=== PATIENT | male | born 1985 | race Hispanic/Latino ===

== ENCOUNTER 2020-02-26 10:34 | Inpatient (IN) | payer OTHER ==
[~2020-02-26 10:34] MED LIST: Iopamidol-370 76% 500 ML 1 ML ONE
[2020-02-26] MEDS ORDERED: Fentanyl 100 MCG/2 ML VIAL ONE ×4 (10:39→21:09)
[2020-02-26] MEDS ORDERED: Adacel (T-DAP) 0.5 ML SYRINGE ONE (10:39)
[2020-02-26] MEDS ORDERED: HYDROmorphone 0.5 MG/0.5 ML SYRINGE ONE ×5 (10:43→12:41)
[2020-02-26 10:50] LABS: Hemoglobin 15.5 g/dL (14.0-18.0); Mean Corpuscular HGB CONC 31.4 g/dL (32.0-36.0); Mean Corpuscular Hemoglobin 29.4 pg (27.0-31.0); Mean Corpuscular Volume 93.7 fL (78.0-98.0); Mean Platelet Volume 7.8 fL (7.4-10.4); Platelet Count 372 thou/uL (130-400); RBC Distribution Width 11.1 % (11.5-14.5); Red Blood Cell (RBC) Count 5.27 mill/uL (4.70-6.10); White Blood Cell (WBC) Count 35.6 thou/uL (4.8-10.8)
[2020-02-26 11:15] LABS: ALT (SGPT) 205 U/L (8-55); AST (SGOT) 202 U/L (5-34); Albumin 3.7 g/dL (3.5-5.0); Alkaline Phosphatase 88 U/L (40-110); Anion Gap 16 mmol/L (10-20); BUN (Urea Nitrogen) 10 mg/dL (8.9-20.6); Bilirubin, Total 0.7 mg/dL (0.2-1.2); Calc. Creatinine Clearance 0 mL/min (70-130); Calcium 8.7 mg/dL (7.8-10.44); Carbon Dioxide 20 mmol/L (22-29); Chloride 107 mmol/L (98-107); Estimated GFR-MDRD 85; Globulin 3.4 g/dL (2.4-3.5); Glucose 147 mg/dL (70-105); Protein, Total 7.1 g/dL (6.0-8.3); Sodium 139 mmol/L (136-145)
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
[2020-02-26 11:17] LABS: Band 13 % (5-11); Lymphocytes 16 % (21-51); MDiff Complete? YES; Metamyelocyte 1 % (0-0); Monocytes 4 % (0-10); Neutrophil 65 % (42-75); Platelet Morphology Comment Appears Adequate; RBC Morphology Normal; Reactive Lymphocytes 1 % (0-10)
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
[2020-02-26] MEDS ORDERED: Succinylcholine Chloride 20 MG/ML 10 ml SYRINGE FS ONE (11:27)
[2020-02-26] MEDS ORDERED: Glycopyrrolate 0.2 MG/ML 5 ML SYRINGE ONE (11:27)
[2020-02-26] MEDS ORDERED: Dexamethasone 20 MG/5 ML VIAL ONE (11:27)
[2020-02-26] MEDS ORDERED: Ketorolac Tromethamine 30 MG/ML VIAL ONE (11:27)
[2020-02-26] MEDS ORDERED: Rocuronium Bromide 10 MG/ML (10ML VIAL) ONE (11:27)
[2020-02-26] MEDS ORDERED: Lidocaine 1% PF 5 ML VIAL ONE (11:27)
[2020-02-26] MEDS ORDERED: Ondansetron PF 4 MG/2 ML Vial ONE (11:27)
[2020-02-26] MEDS ORDERED: PHENYLEPHRINE-NS 100 MCG/ML 10 ML SYRINGE ONE (11:27)
[2020-02-26] MEDS ORDERED: PROPOFOL 200 MG/20 ML VIAL ONE (11:27)
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
[2020-02-26] MEDS ORDERED: Lidocaine 1% w/Epinephrine 1:100K 20 ML VIAL ONE (11:57)
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
[2020-02-26 12:56] LABS: Alcohol Less than 10 mg/dL (Less than 10); Valproic Acid (Depakene) Less than 12.5 ug/mL (50.0-100.0)
[2020-02-26] MEDS ORDERED: hydrALAZINE 20 MG/ML VIAL SLOW IVP PRN (12:58)
[2020-02-26] MEDS ORDERED: Dextrose 5% in Water 1,000 ML IV PRN (12:58)
[2020-02-26] MEDS ORDERED: Dextrose 50% Abboject 50 ML SYRINGE SLOW IVP PRN (12:58)
[2020-02-26] MEDS ORDERED: Morphine 4 MG/ML VIAL SLOW IVP PRN (12:58)
[2020-02-26] MEDS ORDERED: traMADol HCl 50 MG TAB PO PRN ×2 (13:02)
[2020-02-26] MEDS ORDERED: PROVENTIL INHALER 6.7 G (200 INHALATIONS) INH PRN (13:17)
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
[2020-02-26 13:38] LABS: Amphetamine Not Detected (NotDetected); Barbiturates Screen Not Detected (NotDetected); Benzodiazepine Screen Not Detected (NotDetected); Cocaine Metabolite Screen Not Detected (NotDetected); Medtox Control Line Valid? VALID (VALID); Medtox Reader # READER 1; Methadone Not Detected (NotDetected); Methamphetamine Not Detected (NotDetected); Opiate Screen Detected (NotDetected); Oxycodone Screen Not Detected (NotDetected); Phencyclidine (PCP) Not Detected (NotDetected); THC/Cannabinoid Screen Not Detected (NotDetected); Tricyclic Screen Not Detected (NotDetected)
[2020-02-26 13:46] LABS: Bacteria/HPF None Seen HPF (None Seen); Bilirubin Negative (Negative); Blood, Urine 1+ (Negative); Clarity Clear (Clear); Glucose, Urine (Dipstick) Normal (Negative); Leukocyte Negative Leu/uL (Negative); Nitrite Negative (Negative); Protein, Urine (Dipstick) 30 mg/dL (Neg-Trace); RBC/HPF 0-3 HPF (0-3); Squamous Epithelial 0-3 HPF (0-3); Urobilinogen Normal mg/dL (Less than 2)
[2020-02-26 13:59] LABS: Lactic Acid 3.6 mmol/L (0.5-2.2)
[2020-02-26] MEDS ORDERED: Divalproex Sodium DR 500 MG TAB PO SCH (14:00)
[2020-02-26] MEDS ORDERED: CEFAZOLIN 2 GM in Premix Bag 1 BAG IVPB SCH ×2 (15:15→22:45)
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
[2020-02-26] MEDS ORDERED: Fentanyl 250 MCG/5 ML VIAL ONE (16:00)
[2020-02-26] MEDS ORDERED: Bupivacaine PF 0.5% 30 ML VIAL ONE (16:26)
[2020-02-26] MEDS ORDERED: HYDROmorphone 2 MG/ML VIAL ONE (18:47)
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
[2020-02-26] MEDS ORDERED: Promethazine HCl 25 MG/ML VIAL SLOW IVP PRN (20:39)
[2020-02-26] MEDS ORDERED: Promethazine HCl 25 MG/ML VIAL IM PRN (20:39)
[2020-02-26] MEDS ORDERED: HYDROmorphone 2 MG/ML VIAL SLOW IVP PRN (20:39)
[2020-02-26] MEDS ORDERED: Ondansetron HCl/PF 4 MG/2 ML Vial IVP PRN (20:39)
[2020-02-26] MEDS ORDERED: PACU-Morphine 4MG/ML VIAL SLOW IVP PRN (20:39)
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
--- NOTE | 2020-02-26 20:57 | RAD ---
RIGHT FEMUR SIX TOTAL IMAGES: Indication: ORIF right femur fracture. Comparison: Right femur radiographs, 02-26-2020. FINDINGS: Since the comparison examination there is improved alignment with interval placement of an intramedul ruth leanna involving a comminuted segmental right femoral shaft fracture. There are proximal and distal interlock screws involving the proximal femur and distal right femur. Instrumentation projects in th e expected position. Total fluoroscopic time: 145.2 seconds, total exposure 22.1 mGy*cm^2. IMPRESSION: Interval reduction and placement of intramedullary leanna transversing patient's comminuted right midsha ft femoral fracture. POS: [facility]
[2020-02-26 22:20] VITALS: BMI 37.5
[2020-02-26] MEDS: Acetaminophen 500 MG TAB PO SCH ×2 (22:41→22:42)
[2020-02-26] MEDS: Sodium Chloride 0.9% 1,000 ML IV SCH (22:41)
[2020-02-26] MEDS: Ibuprofen 600 MG TAB PO SCH ×2 (22:42→22:49)
[2020-02-26] MEDS: Senokot S 8.6-50 MG TAB PO SCH (22:42)
[2020-02-26] MEDS: Gabapentin 300 MG CAP PO SCH (22:42)
[2020-02-26] MEDS: Famotidine/PF 20 mg/2ml Vial SLOW IVP SCH (22:42)
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
[2020-02-27] MEDS: Acetaminophen 500 MG TAB PO SCH ×2 (02:24→05:43)
[2020-02-27] MEDS: Ondansetron PF 4 MG/2 ML Vial IVP PRN (02:49)
[2020-02-27] MEDS: Ibuprofen 600 MG TAB PO SCH ×3 (05:43→22:58)
[2020-02-27] MEDS: Cyclobenzaprine 10 MG TAB PO PRN ×2 (05:43→22:58)
[2020-02-27] MEDS: CEFAZOLIN 2 GM in Premix Bag 1 BAG IVPB SCH ×2 (05:44→13:22)
[2020-02-27 06:03] LABS: ALT (SGPT) 110 U/L (8-55); AST (SGOT) 108 U/L (5-34); Alkaline Phosphatase 53 U/L (40-110); Anion Gap 15 mmol/L (10-20); BUN (Urea Nitrogen) 11 mg/dL (8.9-20.6); Bilirubin, Total 0.6 mg/dL (0.2-1.2); Calc. Creatinine Clearance 183 mL/min (70-130); Calcium 7.7 mg/dL (7.8-10.44); Carbon Dioxide 19 mmol/L (22-29); Chloride 106 mmol/L (98-107); Estimated GFR-MDRD 88; Globulin 2.9 g/dL (2.4-3.5); Glucose 194 mg/dL (70-105); Magnesium 1.5 mg/dL (1.6-2.6); Phosphorus 2.5 mg/dL (2.3-4.7); Potassium 4.5 mmol/L (3.5-5.1); Protein, Total 5.9 g/dL (6.0-8.3); Sodium 135 mmol/L (136-145)
[2020-02-27 07:00] LABS: Hemoglobin 11.8 g/dL (14.0-18.0); Mean Corpuscular HGB CONC 32.1 g/dL (32.0-36.0); Mean Corpuscular Hemoglobin 30.6 pg (27.0-31.0); Mean Corpuscular Volume 95.3 fL (78.0-98.0); Platelet Count 281 thou/uL (130-400); RBC Distribution Width 11.3 % (11.5-14.5); Red Blood Cell (RBC) Count 3.87 mill/uL (4.70-6.10); White Blood Cell (WBC) Count 15.7 thou/uL (4.8-10.8)
[2020-02-27 07:03] LABS: Band 21 % (5-11); Lymphocytes 17 % (21-51); MDiff Complete? YES; Monocytes 17 % (0-10); Neutrophil 45 % (42-75)
--- NOTE | 2020-02-27 07:52 | RAD ---
RIGHT ANKLE THREE FLUOROSCOPIC VIEWS: Indication: Post reduction in OR. Comparison: 02-26-2020 FINDINGS: Since the comparison examination there is improved coverage of the talar dome with reduction of the a nkle fracture subluxation seen on the comparison examination. There is improved alignment of the bima lleolar ankle fracture. Overlying fiber glass splint slightly limits image detail. Total fluoroscopic time is 22.8 sec, total exposure 1.8 mGy*cm^2. IMPRESSION: Improved alignment of the fracture subluxation involving the right ankle. POS: [facility]INA
--- NOTE | 2020-02-27 08:48 | CT ---
EXAM: CT right ankle and midfoot PROVIDED CLINICAL HISTORY: Fractures COMPARISON: None FINDINGS: There is transversely oriented, minimally displaced, comminuted Casillas C fibular fracture. There is transversely oriented, minimally displaced fracture at the base of the medial malleolus. There is a markedly comminuted, displaced fracture involving the anterolateral aspect of the tibial p heri. There is about 6 mm of intra-articular gap. Multiple osseous fragments are seen in the region of the distal tibiofibular syndesmosis. There is a nondisplaced fracture involving the lateral process of the talus. There is a comminuted, mildly displaced fracture at the dorsal margin of the medial cuneiform. There is a nondisplaced intra-articular fracture involving the plantar aspects of the medial cuneiform. The avulsion type fracture involves the lateral margin of the middle cuneiform. The alignment at the Lisfranc joint appears preserved in the absence of weightbearing. There is a tiny osseous fragment at the plantar aspect of the C1 M2 interval. No evidence for fracture involving the metatarsal bases. Alignment appears otherwise anatomic. IMPRESSION: Foreleg, hindfoot and midfoot fractures as described.
[2020-02-27] MEDS: Famotidine/PF 20 mg/2ml Vial SLOW IVP SCH ×2 (08:50→20:14)
[2020-02-27] MEDS: Polyethylene Glycol 3350 17 GM Packet PO SCH (08:50)
[2020-02-27] MEDS: Senokot S 8.6-50 MG TAB PO SCH ×2 (08:50→20:14)
[2020-02-27] MEDS: Gabapentin 300 MG CAP PO SCH ×3 (08:50→20:14)
[2020-02-27] MEDS: Sodium Chloride 0.9% 1,000 ML IV SCH ×3 (09:02→22:58)
[2020-02-27] MEDS ORDERED: Acetaminophen/Codeine 30-300mg Tablet PO PRN ×2 (09:31)
[2020-02-27 11:10] LABS: Hemoglobin 11.3 g/dL (14.0-18.0); Mean Corpuscular HGB CONC 33.1 g/dL (32.0-36.0); Mean Corpuscular Hemoglobin 30.9 pg (27.0-31.0); Mean Corpuscular Volume 93.5 fL (78.0-98.0); Mean Platelet Volume 8.1 fL (7.4-10.4); Platelet Count 240 thou/uL (130-400); RBC Distribution Width 11.1 % (11.5-14.5); Red Blood Cell (RBC) Count 3.65 mill/uL (4.70-6.10)
--- NOTE | 2020-02-27 11:31 | RAD ---
LEFT FORELEG 7 VIEWS: INDICATION: ORIF of left foreleg fracture. COMPARISON: Left foreleg radiograph dated 02/26/2020. FINDINGS: Since the comparison examination, there has been interval reduction and placement of an intramedullar y leanna fixating the patient's mid shaft left tibia fracture. Fracture line is near anatomic. There a re proximal and distal interlocking screws. Total fluoroscopic time is 64.4 seconds. Total exposure is 2.07 mGy. IMPRESSION: Interval reduction and placement of an intramedullary leanna traversing patient's left mid shaft tibia f racture. Fracture alignment is improved. POS: BH
[2020-02-27 11:37] LABS: ALT (SGPT) 96 U/L (8-55); AST (SGOT) 112 U/L (5-34); Albumin 3.1 g/dL (3.5-5.0); Alkaline Phosphatase 49 U/L (40-110); Anion Gap 12 mmol/L (10-20); BUN (Urea Nitrogen) 10 mg/dL (8.9-20.6); Bilirubin, Total 0.6 mg/dL (0.2-1.2); Calc. Creatinine Clearance 193 mL/min (70-130); Calcium 7.8 mg/dL (7.8-10.44); Carbon Dioxide 25 mmol/L (22-29); Chloride 104 mmol/L (98-107); Estimated GFR-MDRD Greater than 90; Globulin 2.6 g/dL (2.4-3.5); Glucose 134 mg/dL (70-105); Lipase 6 U/L (8-78); Potassium 3.9 mmol/L (3.5-5.1); Protein, Total 5.7 g/dL (6.0-8.3); Sodium 137 mmol/L (136-145)
[2020-02-27 12:01] LABS: Band 10 % (5-11); Lymphocytes 19 % (21-51); MDiff Complete? YES; Monocytes 15 % (0-10); Neutrophil 56 % (42-75); Platelet Morphology Comment Appears Adequate; RBC Morphology Normal
[2020-02-27] MEDS: Acetaminophen 325 MG TAB PO SCH ×3 (12:50→22:58)
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
--- NOTE | 2020-02-27 15:48 | EEG ---
Referring Physician: Megan BRIDGES EEG # [id number] TEST TYPE: EXTENDED CONTINUOUS INPATIENT VIDEO EEG. REPORT: This EEG was performed using 24 channel LifeShield video digital EEG machine with 24 disc electrodes. This was an extended 2 hour 5 minutes of inpatient video EEG recording. Digital analysis of the EEG was done with spike and seizure detection which revealed no abnormalities. BACKGROUND: There is a nonsustained posterior background rhythm of 7-8 hertz. Minimal reactivity seen with eye opening and eye closure. HYPERVENTILATION: No significant response seen with hyperventilation: PHOTIC STIMULATION: No significant response seen with photic stimulation. SLEEP: Drowsiness and brief sleep is observed. EEG DIAGNOSIS: 1.) Occasional irregular theta activity seen during the recording. 2.) Nonsustained slow posterior background rhythm. CLINICAL INTERPRETATION: THIS EEG IS CONSISTENT WITH MILD GENERALIZED NONSPECIFIC CEREBRAL DYSFUNCTION. NO ICTAL OR INTERICTAL EPILEPTIFORM ABNORMALITIES SEEN DURING THE RECORDING. Sessions Clerk: SIMEON [employer] Music Teacher: EEG.BELTRAN ESTEBAN
[2020-02-27] MEDS: Enoxaparin Sodium 30 MG/0.3 ML SYRINGE SC SCH (20:14)
[2020-02-27] MEDS: Divalproex Sodium DR 500 MG TAB PO SCH (20:15)
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
[2020-02-28 03:28] LABS: #Eosinphils 0.2 thou/uL (0.0-0.7); #Lymphocytes 3.3 thou/uL (1.20-3.40); #Monocytes 1.7 thou/uL (0.11-0.59); #Neutrophils 7.9 thou/uL (1.40-6.50); %Basophils 0.4 % (0.0-1.0); %Eosinophils 1.2 % (0.0-10.0); %Lymphocytes 25.3 % (21.0-51.0); %Monocytes 12.7 % (0.0-10.0); %Neutrophils 60.4 % (42.0-75.0); Hemoglobin 8.9 g/dL (14.0-18.0); Mean Corpuscular HGB CONC 33.8 g/dL (32.0-36.0); Mean Corpuscular Hemoglobin 31.3 pg (27.0-31.0); Mean Corpuscular Volume 92.7 fL (78.0-98.0); Mean Platelet Volume 8.1 fL (7.4-10.4); Platelet Count 172 thou/uL (130-400); Red Blood Cell (RBC) Count 2.85 mill/uL (4.70-6.10)
[2020-02-28 03:46] LABS: ALT (SGPT) 63 U/L (8-55); AST (SGOT) 108 U/L (5-34); Albumin 2.7 g/dL (3.5-5.0); Alkaline Phosphatase 45 U/L (40-110); Anion Gap 11 mmol/L (10-20); BUN (Urea Nitrogen) 11 mg/dL (8.9-20.6); Bilirubin, Total 0.5 mg/dL (0.2-1.2); Calc. Creatinine Clearance 222 mL/min (70-130); Calcium 7.2 mg/dL (7.8-10.44); Carbon Dioxide 27 mmol/L (22-29); Chloride 105 mmol/L (98-107); Estimated GFR-MDRD Greater than 90; Globulin 2.5 g/dL (2.4-3.5); Glucose 109 mg/dL (70-105); Magnesium 1.7 mg/dL (1.6-2.6); Potassium 3.7 mmol/L (3.5-5.1); Protein, Total 5.2 g/dL (6.0-8.3); Sodium 139 mmol/L (136-145)
[2020-02-28] MEDS: Ibuprofen 600 MG TAB PO SCH ×3 (05:38→20:09)
[2020-02-28] MEDS: Acetaminophen 325 MG TAB PO SCH (05:38)
[2020-02-28] MEDS: Sodium Chloride 0.9% 1,000 ML IV SCH ×3 (05:42→20:04)
[2020-02-28] MEDS ORDERED: Acetaminophen/Codeine 30-300mg Tablet PO PRN (07:11)
[2020-02-28] MEDS ORDERED: Potassium Phosphate 15 MMOL in Sodium Chloride 0.9% 250 ML 250 ML IVPB SCH (07:15)
[2020-02-28] MEDS ORDERED: Magnesium Sulfate 3 GM in Sodium Chloride 0.9% 100 ML IVPB SCH (08:30)
[2020-02-28] MEDS: Acetaminophen/Codeine 30-300mg Tablet PO SCH ×3 (08:40→19:19)
[2020-02-28] MEDS: Gabapentin 300 MG CAP PO SCH ×3 (08:40→20:05)
[2020-02-28] MEDS: Famotidine 20 MG TAB PO SCH ×2 (08:40→20:05)
[2020-02-28] MEDS: Divalproex Sodium DR 500 MG TAB PO SCH ×2 (08:40→20:05)
[2020-02-28] MEDS: Senokot S 8.6-50 MG TAB PO SCH ×2 (08:40→20:05)
[2020-02-28] MEDS: Enoxaparin Sodium 30 MG/0.3 ML SYRINGE SC SCH ×2 (08:41→20:06)
[2020-02-28] MEDS: Polyethylene Glycol 3350 17 GM Packet PO SCH (08:41)
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
[2020-02-29] MEDS: Acetaminophen/Codeine 30-300mg Tablet PO SCH ×4 (00:15→18:09)
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
[2020-02-29] MEDS: Ibuprofen 600 MG TAB PO SCH ×3 (06:15→20:41)
[2020-02-29 08:31] LABS: #Eosinphils 0.2 thou/uL (0.0-0.7); #Lymphocytes 2.4 thou/uL (1.20-3.40); #Neutrophils 8.4 thou/uL (1.40-6.50); %Basophils 0.2 % (0.0-1.0); %Eosinophils 1.9 % (0.0-10.0); %Lymphocytes 19.8 % (21.0-51.0); %Monocytes 8.6 % (0.0-10.0); %Neutrophils 69.5 % (42.0-75.0); Hemoglobin 8.5 g/dL (14.0-18.0); Mean Corpuscular HGB CONC 34.1 g/dL (32.0-36.0); Mean Corpuscular Hemoglobin 31.7 pg (27.0-31.0); Platelet Count 199 thou/uL (130-400); Red Blood Cell (RBC) Count 2.69 mill/uL (4.70-6.10); White Blood Cell (WBC) Count 12.1 thou/uL (4.8-10.8)
[2020-02-29] MEDS ORDERED: Potassium Phosphate 30 MMOL, Magnesium Sulfate 3 GM in Sodium Chloride 0.9% 250 ML 250 ML IVPB SCH (08:45)
[2020-02-29 08:54] LABS: Anion Gap 12 mmol/L (10-20); BUN (Urea Nitrogen) 11 mg/dL (8.9-20.6); Calc. Creatinine Clearance 254 mL/min (70-130); Calcium 7.4 mg/dL (7.8-10.44); Carbon Dioxide 26 mmol/L (22-29); Chloride 106 mmol/L (98-107); Estimated GFR-MDRD Greater than 90; Glucose 97 mg/dL (70-105); Phosphorus 2.9 mg/dL (2.3-4.7); Potassium 4.1 mmol/L (3.5-5.1); Sodium 140 mmol/L (136-145)
[2020-02-29] MEDS: Gabapentin 300 MG CAP PO SCH ×3 (10:03→20:41)
[2020-02-29] MEDS: Cyclobenzaprine 10 MG TAB PO PRN ×2 (10:03→20:41)
[2020-02-29] MEDS: Divalproex Sodium DR 500 MG TAB PO SCH ×2 (10:03→21:02)
[2020-02-29] MEDS: Enoxaparin Sodium 30 MG/0.3 ML SYRINGE SC SCH ×2 (10:04→20:41)
[2020-02-29] MEDS: Famotidine 20 MG TAB PO SCH ×2 (10:04→20:41)
[2020-02-29] MEDS: Senokot S 8.6-50 MG TAB PO SCH ×2 (10:05→20:41)
[2020-02-29] MEDS: Polyethylene Glycol 3350 17 GM Packet PO SCH (10:06)
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
[2020-03-01] MEDS: Acetaminophen/Codeine 30-300mg Tablet PO SCH ×4 (00:35→18:27)
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
[2020-03-01] MEDS: Ibuprofen 600 MG TAB PO SCH ×3 (05:03→21:19)
[2020-03-01 05:34] LABS: Phosphorus 3.4 mg/dL (2.3-4.7)
[2020-03-01 05:35] LABS: Anion Gap 11 mmol/L (10-20); BUN (Urea Nitrogen) 12 mg/dL (8.9-20.6); Calc. Creatinine Clearance 240 mL/min (70-130); Calcium 8.1 mg/dL (7.8-10.44); Carbon Dioxide 29 mmol/L (22-29); Chloride 103 mmol/L (98-107); Estimated GFR-MDRD Greater than 90; Glucose 103 mg/dL (70-105); Potassium 4.2 mmol/L (3.5-5.1); Sodium 139 mmol/L (136-145); Valproic Acid (Depakene) 57.9 ug/mL (50.0-100.0)
[2020-03-01] MEDS: Senokot S 8.6-50 MG TAB PO SCH ×2 (08:35→20:37)
[2020-03-01] MEDS: Famotidine 20 MG TAB PO SCH ×2 (08:35→20:36)
[2020-03-01] MEDS: Divalproex Sodium DR 500 MG TAB PO SCH ×2 (08:35→20:37)
[2020-03-01] MEDS: Gabapentin 300 MG CAP PO SCH ×3 (08:35→20:37)
[2020-03-01] MEDS: Cyclobenzaprine 10 MG TAB PO PRN (08:35)
[2020-03-01] MEDS: Enoxaparin Sodium 30 MG/0.3 ML SYRINGE SC SCH ×2 (08:37→20:36)
[2020-03-01] MEDS: Polyethylene Glycol 3350 17 GM Packet PO SCH (08:37)
[2020-03-01] MEDS ORDERED: Artificial Tear Sol 15 ML BOT EA EYE PRN (08:37)
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
--- NOTE | 2020-03-01 16:04 | MRI ---
MRI OF BRAIN WITHOUT CONTRAST: 03/01/20 INDICATION: Seizure. Correlation made to CT head 02/26/20 which showed no abnormality. FINDINGS: Ventricles have normal size and position. There is no evidence of restricted diffusion. No mass or ed lane. There is no white matter abnormality. Hippocampal formations appear symmetric. Intracranial internal carotid arteries and cerebral arterie s show expected flow voids. Dural venous sinuses are patent. There is cerebellar tonsillar ectopia. The ectopia is measured at 6 mm below the foramen magnum in sa gittal review. This does meet criteria for Chiari I. There is no compression on the cervical medullar y junction or medulla. No mass effect. No kinking of the cervical medullary cord. The paranasal sinuses and mastoids appear clear. IMPRESSION: 1. 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 There is no mass effect o n the medulla or cervicomedullary junction from this ectopia. 2. MRI of brain otherwise unremarkable. POS: AGW
[2020-03-02] MEDS: Acetaminophen/Codeine 30-300mg Tablet PO SCH ×3 (00:28→14:14)
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
[2020-03-02] MEDS: Ibuprofen 600 MG TAB PO SCH ×2 (06:02→14:14)
[2020-03-02] MEDS: Enoxaparin Sodium 30 MG/0.3 ML SYRINGE SC SCH ×2 (09:22→20:14)
[2020-03-02] MEDS: Gabapentin 300 MG CAP PO SCH ×3 (09:23→22:16)
[2020-03-02] MEDS: Polyethylene Glycol 3350 17 GM Packet PO SCH (09:23)
[2020-03-02] MEDS: Famotidine 20 MG TAB PO SCH ×2 (09:23→22:15)
[2020-03-02] MEDS: Senokot S 8.6-50 MG TAB PO SCH ×2 (09:23→22:16)
[2020-03-02] MEDS: Divalproex Sodium DR 500 MG TAB PO SCH ×2 (09:23→22:15)
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
[2020-03-02 16:32] LABS: SARS-CoV-2 MS2 Positive; SARS-CoV-2 N Gene Negative; SARS-CoV-2 S Gene Negative; SARS-CoV-2 orf1ab Negative
[2020-03-02] MEDS: Ondansetron PF 4 MG/2 ML Vial IVP PRN (17:57)
[2020-03-02] MEDS ORDERED: Bisacodyl 10 MG SUPP PR SCH (18:45)
--- NOTE | 2020-03-02 21:17 | RAD ---
SINGLE VIEW OF THE ABDOMEN: 03/02/20 COMPARISON: None. HISTORY: NG tube placement. FINDINGS: Single view of the abdomen shows air throughout the colon. No obvious NG tube can be seen on this fine ited exam. A few air fluid levels are seen within loops of bowel. IMPRESSION: NG tube not visualized. POS: EAA
[2020-03-02] MEDS: Ascorbic Acid 500 mg Chewable Tablet PO SCH (22:15)
[2020-03-02] MEDS: Sodium Chloride 0.9% 1,000 ML IV SCH (22:45)
[2020-03-03] MEDS: Ketorolac Tromethamine 30 MG/ML VIAL IVP SCH ×4 (00:01→18:30)
[2020-03-03] MEDS: Acetaminophen/Codeine 30-300mg Tablet PO SCH (00:31)
[2020-03-03] MEDS: Divalproex Sodium DR 500 MG TAB PO SCH ×3 (00:32→21:41)
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
[2020-03-03] MEDS: Bisacodyl 10 MG SUPP PR SCH ×3 (04:09→21:21)
[2020-03-03] MEDS: Sodium Chloride 0.9% 1,000 ML IV SCH ×3 (05:23→21:33)
[2020-03-03 05:34] LABS: Band 5 % (5-11); Hemoglobin 9.3 g/dL (14.0-18.0); Hypochromia SLIGHT = 6-15 cells (100X) (0-5/hpf); Lymphocytes 6 % (21-51); MDiff Complete? YES; Mean Corpuscular HGB CONC 31.6 g/dL (32.0-36.0); Mean Corpuscular Hemoglobin 29.2 pg (27.0-31.0); Mean Corpuscular Volume 92.4 fL (78.0-98.0); Mean Platelet Volume 8.2 fL (7.4-10.4); Metamyelocyte 1 % (0-0); Monocytes 10 % (0-10); Neutrophil 78 % (42-75); Platelet Count 329 thou/uL (130-400); Platelet Morphology Comment Appears Adequate; RBC Distribution Width 11.8 % (11.5-14.5); Red Blood Cell (RBC) Count 3.17 mill/uL (4.70-6.10); White Blood Cell (WBC) Count 19.9 thou/uL (4.8-10.8)
[2020-03-03 07:00] LABS: Anion Gap 14 mmol/L (10-20); BUN (Urea Nitrogen) 23 mg/dL (8.9-20.6); Calc. Creatinine Clearance 234 mL/min (70-130); Calcium 8.4 mg/dL (7.8-10.44); Carbon Dioxide 28 mmol/L (22-29); Chloride 99 mmol/L (98-107); Estimated GFR-MDRD Greater than 90; Glucose 120 mg/dL (70-105); Phosphorus 3.4 mg/dL (2.3-4.7); Potassium 4.4 mmol/L (3.5-5.1); Sodium 137 mmol/L (136-145)
--- NOTE | 2020-03-03 07:36 | RAD ---
SINGLE VIEW ABDOMEN: Date: 03/02/2020 COMPARISON: None. HISTORY: NG tube placement. FINDINGS: Single view of the upper abdomen shows a NG tube overlying the left upper quadrant of the abdomen, li niharika within the stomach. Air is seen in the colon. No infiltrates are seen in the lung bases. IMPRESSION: NG tube located in the stomach. POS: EAA
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
[2020-03-03] MEDS: Famotidine 20 MG TAB PO SCH ×2 (08:32→21:20)
[2020-03-03] MEDS: Senokot S 8.6-50 MG TAB PO SCH ×2 (08:32→21:21)
[2020-03-03] MEDS: Enoxaparin Sodium 30 MG/0.3 ML SYRINGE SC SCH ×2 (08:33→21:22)
[2020-03-03] MEDS: Ascorbic Acid 500 mg Chewable Tablet PO SCH ×2 (08:33→21:21)
[2020-03-03] MEDS: Ferrous Sulfate 325 MG TAB PO SCH ×3 (08:33→18:29)
[2020-03-03] MEDS: Gabapentin 300 MG CAP PO SCH ×3 (08:33→21:21)
[2020-03-03] MEDS: Polyethylene Glycol 3350 17 GM Packet PO SCH (08:45)
--- NOTE | 2020-03-03 10:50 | RAD ---
EXAM: XR Abdomen 2 View PROVIDED CLINICAL HISTORY: Constipation COMPARISON: 03/02/2020 FINDINGS: Nasogastric tube is noted in place with tip overlying the expected location of the body of the stomac h. Lung bases are mostly excluded from view on this exam. Again noted is gas within the colon. There is also gaseous distention of loops of small bowel with mild dilatation of loops of small bowel in the lateral left abdomen. Air-fluid levels are seen in loops of small bowel. No definite suspicious calcifications are seen. No other interval change. IMPRESSION: Gaseous distention of small and large loops of bowel with mildly dilated loops of small bowel in the left abdomen. Findings may be attributable to either ileus or partial small bowel obstruction. There is evidence of gas within the colon.
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
[2020-03-03] MEDS: Cyclobenzaprine 10 MG TAB PO PRN (21:29)
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
[2020-03-04] MEDS: Bisacodyl 10 MG SUPP PR SCH (04:47)
[2020-03-04] MEDS: Sodium Chloride 0.9% 1,000 ML IV SCH ×3 (04:48→22:29)
[2020-03-04] MEDS: Ibuprofen 600 MG TAB PO PRN (04:48)
[2020-03-04 05:30] LABS: Magnesium 1.9 mg/dL (1.6-2.6); Phosphorus 3.4 mg/dL (2.3-4.7)
[2020-03-04 05:32] LABS: Band 10 % (5-11); Hemoglobin 8.4 g/dL (14.0-18.0); Lymphocytes 18 % (21-51); MDiff Complete? YES; Mean Corpuscular HGB CONC 32.5 g/dL (32.0-36.0); Mean Corpuscular Hemoglobin 30.9 pg (27.0-31.0); Mean Corpuscular Volume 94.9 fL (78.0-98.0); Mean Platelet Volume 7.2 fL (7.4-10.4); Metamyelocyte 6 % (0-0); Monocytes 8 % (0-10); Myelocyte 1 % (0-0); Neutrophil 57 % (42-75); Nucleated RBC 2 % (0); Platelet Count 390 thou/uL (130-400); Platelet Morphology Comment Appears Adequate; RBC Distribution Width 12.2 % (11.5-14.5); Red Blood Cell (RBC) Count 2.72 mill/uL (4.70-6.10); White Blood Cell (WBC) Count 18.8 thou/uL (4.8-10.8)
[2020-03-04] MEDS: Ascorbic Acid 500 mg Chewable Tablet PO SCH ×2 (08:40→21:01)
[2020-03-04] MEDS: Senokot S 8.6-50 MG TAB PO SCH ×2 (08:40→21:02)
[2020-03-04] MEDS: Gabapentin 300 MG CAP PO SCH ×3 (08:41→21:01)
[2020-03-04] MEDS: Enoxaparin Sodium 30 MG/0.3 ML SYRINGE SC SCH ×2 (08:41→21:01)
[2020-03-04] MEDS: Famotidine 20 MG TAB PO SCH ×2 (08:41→21:01)
[2020-03-04] MEDS: Polyethylene Glycol 3350 17 GM Packet PO SCH (08:42)
[2020-03-04] MEDS: Divalproex Sodium DR 500 MG TAB PO SCH ×2 (08:42→21:00)
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
[2020-03-04] MEDS: Ferrous Sulfate 325 MG TAB PO SCH (20:41)
[2020-03-05] MEDS: Morphine 2 MG/ML SYRINGE SLOW IVP PRN ×2 (00:01→05:11)
[2020-03-05] MEDS: Sodium Chloride 0.9% 1,000 ML IV SCH ×3 (00:02→20:09)
[2020-03-05 00:57] LABS: Bilirubin Negative (Negative); Blood, Urine Negative (Negative); Clarity Turbid (Clear); Glucose, Urine (Dipstick) Normal (Negative); Leukocyte Negative Leu/uL (Negative); Nitrite Negative (Negative); Protein, Urine (Dipstick) 10 mg/dL (Neg-Trace); Urobilinogen 6 mg/dL (Less than 2)
[2020-03-05] MEDS: Cyclobenzaprine 10 MG TAB PO PRN (02:10)
[2020-03-05] MEDS: Ibuprofen 600 MG TAB PO PRN (02:10)
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
[2020-03-05] MEDS: Enoxaparin Sodium 30 MG/0.3 ML SYRINGE SC SCH ×2 (07:58→21:19)
[2020-03-05] MEDS: Ferrous Sulfate 325 MG TAB PO SCH ×2 (08:00→20:10)
[2020-03-05] MEDS: Gabapentin 300 MG CAP PO SCH ×3 (09:02→21:18)
[2020-03-05] MEDS: Famotidine 20 MG TAB PO SCH (09:02)
[2020-03-05] MEDS: Divalproex Sodium DR 500 MG TAB PO SCH ×2 (09:02→21:18)
[2020-03-05] MEDS: Polyethylene Glycol 3350 17 GM Packet PO SCH (09:03)
[2020-03-05] MEDS: Senokot S 8.6-50 MG TAB PO SCH ×2 (09:03→21:18)
[2020-03-05] MEDS: Ascorbic Acid 500 mg Chewable Tablet PO SCH ×2 (09:04→21:18)
[2020-03-05] MEDS ORDERED: Labetalol HCl 100 MG/20 ML VIAL ONE (12:15)
[2020-03-05] MEDS ORDERED: Succinylcholine Chloride 20 MG/ML 10 ml SYRINGE FS ONE (12:15)
[2020-03-05] MEDS ORDERED: PROPOFOL 200 MG/20 ML VIAL ONE (12:15)
[2020-03-05] MEDS ORDERED: Esmolol 100 MG/10 ML VIAL ONE (12:15)
[2020-03-05] MEDS ORDERED: Ondansetron PF 4 MG/2 ML Vial ONE (12:15)
[2020-03-05] MEDS ORDERED: Ketorolac Tromethamine 30 MG/ML VIAL ONE (12:15)
[2020-03-05] MEDS ORDERED: Dexamethasone 20 MG/5 ML VIAL ONE (12:15)
[2020-03-05] MEDS ORDERED: Lidocaine 1% PF 5 ML VIAL ONE ×2 (12:15)
[2020-03-05] MEDS ORDERED: Albuterol Sulfate HFA (OR ONLY) ONE (13:46)
[2020-03-05] MEDS ORDERED: Fentanyl 100 MCG/2 ML VIAL ONE ×2 (14:10→15:15)
[2020-03-05] MEDS ORDERED: HYDROmorphone 2 MG/ML VIAL ONE (14:11)
--- NOTE | 2020-03-05 17:11 | RAD ---
Exam:Exam: Intraoperative fluoroscopy HISTORY: ORIF FINDINGS: Intraoperative fluoroscopic views demonstrate placement of 2 screws in the mid foot. IMPRESSION: Intraoperative fluoroscopy as above.
[2020-03-05] MEDS ORDERED: Promethazine HCl 25 MG/ML VIAL SLOW IVP PRN (17:13)
[2020-03-05] MEDS ORDERED: HYDROmorphone 2 MG/ML VIAL SLOW IVP PRN (17:13)
[2020-03-05] MEDS ORDERED: Promethazine HCl 25 MG/ML VIAL IM PRN (17:13)
[2020-03-05] MEDS ORDERED: Ondansetron HCl/PF 4 MG/2 ML Vial IVP PRN (17:13)
[2020-03-05] MEDS ORDERED: Morphine Sulfate 2 MG/ML SYRINGE SLOW IVP PRN (17:13)
[2020-03-05] MEDS ORDERED: PACU-Morphine 4MG/ML VIAL SLOW IVP PRN (17:13)
--- NOTE | 2020-03-05 18:07 | RAD ---
RIGHT ANKLE: 03/05/20 Two fluoroscopic views were taken in the OR. INDICATION: Open reduction internal fixation. FINDINGS/IMPRESSION: These views show plate and screws transfixing the distal fibula. Screws transfix the medial malleolus . POS: AGW
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
[2020-03-05] MEDS ORDERED: Morphine 2 MG/ML SYRINGE SLOW IVP PRN (20:20)
[2020-03-05] MEDS ORDERED: Cyclobenzaprine 10 MG TAB PO PRN (20:20)
[2020-03-05] MEDS ORDERED: Acetaminophen/Codeine 30-300mg Tablet PO PRN ×2 (20:21)
[2020-03-05] MEDS: Ibuprofen 600 MG TAB PO SCH (21:18)
[2020-03-05] MEDS: CEFAZOLIN 2 GM in Premix Bag 1 BAG IVPB SCH (21:19)
[2020-03-05] MEDS: Acetaminophen 325 MG TAB PO SCH (23:03)
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
[2020-03-06 04:26] LABS: Band 22 % (5-11); Hemoglobin 7.7 g/dL (14.0-18.0); Lymphocytes 17 % (21-51); MDiff Complete? YES; Mean Corpuscular HGB CONC 32.5 g/dL (32.0-36.0); Mean Corpuscular Hemoglobin 30.6 pg (27.0-31.0); Mean Corpuscular Volume 94.1 fL (78.0-98.0); Mean Platelet Volume 6.8 fL (7.4-10.4); Metamyelocyte 3 % (0-0); Monocytes 4 % (0-10); Myelocyte 1 % (0-0); Neutrophil 53 % (42-75); Nucleated RBC 1 % (0); Platelet Count 430 thou/uL (130-400); Platelet Morphology Comment Appears Increased; RBC Distribution Width 12.3 % (11.5-14.5); Red Blood Cell (RBC) Count 2.53 mill/uL (4.70-6.10); White Blood Cell (WBC) Count 19.8 thou/uL (4.8-10.8)
[2020-03-06 04:39] LABS: Anion Gap 13 mmol/L (10-20); BUN (Urea Nitrogen) 18 mg/dL (8.9-20.6); Calc. Creatinine Clearance 244 mL/min (70-130); Calcium 7.9 mg/dL (7.8-10.44); Carbon Dioxide 27 mmol/L (22-29); Chloride 103 mmol/L (98-107); Estimated GFR-MDRD Greater than 90; Glucose 94 mg/dL (70-105); Magnesium 1.8 mg/dL (1.6-2.6); Phosphorus 3.6 mg/dL (2.3-4.7); Sodium 139 mmol/L (136-145)
[2020-03-06] MEDS: CEFAZOLIN 2 GM in Premix Bag 1 BAG IVPB SCH (05:21)
[2020-03-06] MEDS: Acetaminophen 325 MG TAB PO SCH ×4 (05:21→23:17)
[2020-03-06] MEDS: Ibuprofen 600 MG TAB PO SCH ×3 (05:21→20:45)
[2020-03-06] MEDS: Gabapentin 300 MG CAP PO SCH ×3 (09:02→20:42)
[2020-03-06] MEDS: Ascorbic Acid 500 mg Chewable Tablet PO SCH ×2 (09:02→20:42)
[2020-03-06] MEDS: Divalproex Sodium DR 500 MG TAB PO SCH ×2 (09:02→20:42)
[2020-03-06] MEDS: Ferrous Sulfate 325 MG TAB PO SCH ×2 (09:03→17:03)
[2020-03-06] MEDS: Senokot S 8.6-50 MG TAB PO SCH ×2 (09:03→20:42)
[2020-03-06] MEDS: Polyethylene Glycol 3350 17 GM Packet PO SCH (09:04)
[2020-03-06] MEDS: Enoxaparin Sodium 30 MG/0.3 ML SYRINGE SC SCH ×2 (09:08→20:42)
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
[2020-03-07] MEDS: Acetaminophen 325 MG TAB PO SCH ×4 (05:37→23:29)
[2020-03-07] MEDS: Ibuprofen 600 MG TAB PO SCH ×3 (05:37→20:09)
[2020-03-07 06:35] LABS: Band 11 % (5-11); Eosinophils 5 % (0-10); Hemoglobin 7.6 g/dL (14.0-18.0); Hypochromia SLIGHT = 6-15 cells (100X) (0-5/hpf); Lymphocytes 15 % (21-51); MDiff Complete? YES; Mean Corpuscular HGB CONC 32.2 g/dL (32.0-36.0); Mean Corpuscular Hemoglobin 30.9 pg (27.0-31.0); Mean Corpuscular Volume 95.8 fL (78.0-98.0); Mean Platelet Volume 6.4 fL (7.4-10.4); Metamyelocyte 3 % (0-0); Monocytes 4 % (0-10); Neutrophil 62 % (42-75); Platelet Count 412 thou/uL (130-400); Platelet Morphology Comment Appears Increased; RBC Distribution Width 12.8 % (11.5-14.5); Red Blood Cell (RBC) Count 2.46 mill/uL (4.70-6.10)
[2020-03-07] MEDS: Polyethylene Glycol 3350 17 GM Packet PO SCH (10:23)
[2020-03-07] MEDS: Senokot S 8.6-50 MG TAB PO SCH ×2 (10:23→20:09)
[2020-03-07] MEDS: Enoxaparin Sodium 30 MG/0.3 ML SYRINGE SC SCH ×2 (10:49→20:08)
[2020-03-07] MEDS: Divalproex Sodium DR 500 MG TAB PO SCH ×2 (10:50→20:09)
[2020-03-07] MEDS: Ascorbic Acid 500 mg Chewable Tablet PO SCH ×2 (10:50→20:09)
[2020-03-07] MEDS: Gabapentin 300 MG CAP PO SCH ×3 (10:51→20:09)
[2020-03-07] MEDS: Ferrous Sulfate 325 MG TAB PO SCH ×2 (10:51→17:41)
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
[2020-03-08] MEDS: Ibuprofen 600 MG TAB PO SCH ×3 (05:03→20:07)
[2020-03-08] MEDS: Acetaminophen 325 MG TAB PO SCH ×4 (05:04→23:40)
[2020-03-08] MEDS: Divalproex Sodium DR 500 MG TAB PO SCH ×2 (08:28→20:07)
[2020-03-08] MEDS: Gabapentin 300 MG CAP PO SCH ×3 (08:28→20:07)
[2020-03-08] MEDS: Ferrous Sulfate 325 MG TAB PO SCH ×2 (08:28→17:52)
[2020-03-08] MEDS: Ascorbic Acid 500 mg Chewable Tablet PO SCH ×2 (08:28→20:07)
[2020-03-08] MEDS: Enoxaparin Sodium 30 MG/0.3 ML SYRINGE SC SCH ×2 (08:29→20:07)
[2020-03-08] MEDS: Senokot S 8.6-50 MG TAB PO SCH ×2 (08:33→20:07)
[2020-03-08] MEDS: Polyethylene Glycol 3350 17 GM Packet PO SCH (08:33)
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
[2020-03-09] MEDS: Acetaminophen 325 MG TAB PO SCH ×4 (06:20→22:58)
[2020-03-09] MEDS: Ibuprofen 600 MG TAB PO SCH ×3 (06:20→22:57)
[2020-03-09] MEDS: Ferrous Sulfate 325 MG TAB PO SCH ×2 (07:54→17:50)
[2020-03-09] MEDS: Ascorbic Acid 500 mg Chewable Tablet PO SCH ×2 (07:54→22:57)
[2020-03-09] MEDS: Divalproex Sodium DR 500 MG TAB PO SCH ×2 (07:55→23:11)
[2020-03-09] MEDS: Gabapentin 300 MG CAP PO SCH ×3 (07:55→22:57)
[2020-03-09] MEDS: Enoxaparin Sodium 30 MG/0.3 ML SYRINGE SC SCH ×2 (07:55→22:56)
[2020-03-09] MEDS: Polyethylene Glycol 3350 17 GM Packet PO SCH (08:00)
[2020-03-09] MEDS: Senokot S 8.6-50 MG TAB PO SCH ×2 (08:00→19:45)
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
[2020-03-10] MEDS: Ibuprofen 600 MG TAB PO SCH ×3 (05:35→22:05)
[2020-03-10] MEDS: Acetaminophen 325 MG TAB PO SCH ×4 (05:35→23:14)
[2020-03-10] MEDS: Ascorbic Acid 500 mg Chewable Tablet PO SCH ×2 (09:44→20:41)
[2020-03-10] MEDS: Ferrous Sulfate 325 MG TAB PO SCH ×2 (09:44→17:52)
[2020-03-10] MEDS: Gabapentin 300 MG CAP PO SCH ×3 (09:44→20:41)
[2020-03-10] MEDS: Enoxaparin Sodium 30 MG/0.3 ML SYRINGE SC SCH ×2 (09:45→22:05)
[2020-03-10] MEDS: Polyethylene Glycol 3350 17 GM Packet PO SCH (09:48)
[2020-03-10] MEDS: Senokot S 8.6-50 MG TAB PO SCH ×2 (09:48→22:19)
[2020-03-10] MEDS: Divalproex Sodium DR 500 MG TAB PO SCH ×2 (11:10→20:41)
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
[2020-03-11] MEDS: Acetaminophen 325 MG TAB PO SCH ×4 (04:46→23:22)
[2020-03-11] MEDS: Ibuprofen 600 MG TAB PO SCH ×3 (04:46→21:44)
[2020-03-11] MEDS: Polyethylene Glycol 3350 17 GM Packet PO SCH (09:44)
[2020-03-11] MEDS: Ascorbic Acid 500 mg Chewable Tablet PO SCH ×2 (09:45→21:44)
[2020-03-11] MEDS: Enoxaparin Sodium 30 MG/0.3 ML SYRINGE SC SCH ×2 (09:45→21:43)
[2020-03-11] MEDS: Ferrous Sulfate 325 MG TAB PO SCH ×2 (09:45→16:10)
[2020-03-11] MEDS: Divalproex Sodium DR 500 MG TAB PO SCH ×2 (09:45→21:44)
[2020-03-11] MEDS: Gabapentin 300 MG CAP PO SCH ×3 (09:45→21:43)
[2020-03-11] MEDS: Senokot S 8.6-50 MG TAB PO SCH ×2 (09:46→21:44)
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
--- NOTE | 2020-03-11 20:44 | RAD ---
CHEST ONE VIEW: History: Tachycardia Comparison: 03-03-2020 FINDINGS: Lungs are mildly hypoinflated. No pneumothorax. No effusion. No confluent airspace consolidation. No acute osseous abnormality. IMPRESSION: No acute intrathoracic abnormality. POS: HOME
[2020-03-11 20:54] LABS: Hemoglobin 8.6 g/dL (14.0-18.0); Mean Corpuscular HGB CONC 31.6 g/dL (32.0-36.0); Mean Corpuscular Hemoglobin 30.2 pg (27.0-31.0); Mean Corpuscular Volume 95.5 fL (78.0-98.0); Mean Platelet Volume 6.5 fL (7.4-10.4); Platelet Count 538 thou/uL (130-400); RBC Distribution Width 12.8 % (11.5-14.5); Red Blood Cell (RBC) Count 2.85 mill/uL (4.70-6.10); White Blood Cell (WBC) Count 21.6 thou/uL (4.8-10.8)
[2020-03-11 21:05] LABS: Lactic Acid 1.7 mmol/L (0.5-2.2)
[2020-03-11 21:08] LABS: Band 8 % (5-11); Eosinophils 1 % (0-10); Lymphocytes 18 % (21-51); MDiff Complete? YES; Monocytes 11 % (0-10); Myelocyte 1 % (0-0); Neutrophil 61 % (42-75); Nucleated RBC 1 % (0); Platelet Morphology Comment Appears Increased; Polychromasia SLIGHT = 2-3 cells (100X) (0-2/hpf)
[2020-03-11 21:09] LABS: Anion Gap 13 mmol/L (10-20); BUN (Urea Nitrogen) 21 mg/dL (8.9-20.6); Calc. Creatinine Clearance 217 mL/min (70-130); Calcium 8.7 mg/dL (7.8-10.44); Carbon Dioxide 25 mmol/L (22-29); Chloride 101 mmol/L (98-107); Estimated GFR-MDRD Greater than 90; Glucose 164 mg/dL (70-105); Magnesium 1.8 mg/dL (1.6-2.6); Phosphorus 3.8 mg/dL (2.3-4.7); Potassium 4.4 mmol/L (3.5-5.1); Sodium 135 mmol/L (136-145)
[2020-03-11 21:18] LABS: Troponin I Less than 0.010 ng/mL (< 0.028)
[2020-03-11] MEDS ORDERED: Magnesium 2 GM/50 ML 2 GM in Premix Bag 1 BAG IVPB SCH (21:30)
[2020-03-11] MEDS ORDERED: Sodium Phosphate 15 MMOL in Sodium Chloride 0.9% 250 ML 250 ML IVPB SCH (21:30)
[2020-03-11 21:46] LABS: Bacteria/HPF None Seen HPF (None Seen); Bilirubin Negative (Negative); Blood, Urine Negative (Negative); Clarity Clear (Clear); Glucose, Urine (Dipstick) Normal (Negative); Leukocyte Negative Leu/uL (Negative); Nitrite Negative (Negative); Protein, Urine (Dipstick) 10 mg/dL (Neg-Trace); RBC/HPF 0-3 HPF (0-3); Squamous Epithelial None Seen HPF (0-3); Urobilinogen Normal mg/dL (Less than 2); WBC/HPF 0-3 HPF (0-3)
[2020-03-11 21:50] LABS: Urine Culture Reflex No No
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
[2020-03-12 06:07] LABS: Hemoglobin 8.1 g/dL (14.0-18.0); Mean Corpuscular HGB CONC 31.6 g/dL (32.0-36.0); Mean Platelet Volume 6.4 fL (7.4-10.4); Platelet Count 497 thou/uL (130-400); RBC Distribution Width 12.9 % (11.5-14.5); Red Blood Cell (RBC) Count 2.71 mill/uL (4.70-6.10)
[2020-03-12 06:10] LABS: Band 5 % (5-11); Eosinophils 1 % (0-10); Lymphocytes 19 % (21-51); MDiff Complete? YES; Monocytes 15 % (0-10); Myelocyte 5 % (0-0); Neutrophil 55 % (42-75); Platelet Morphology Comment Appears Increased; White Blood Cell (WBC) Count 17.9 thou/uL (4.8-10.8)
[2020-03-12 06:25] LABS: Anion Gap 12 mmol/L (10-20); BUN (Urea Nitrogen) 20 mg/dL (8.9-20.6); Calc. Creatinine Clearance 222 mL/min (70-130); Calcium 8.5 mg/dL (7.8-10.44); Carbon Dioxide 30 mmol/L (22-29); Chloride 102 mmol/L (98-107); Estimated GFR-MDRD Greater than 90; Glucose 124 mg/dL (70-105); Magnesium 2.2 mg/dL (1.6-2.6); Phosphorus 5.5 mg/dL (2.3-4.7); Potassium 3.7 mmol/L (3.5-5.1); Sodium 140 mmol/L (136-145)
[2020-03-12] MEDS: Ibuprofen 600 MG TAB PO SCH ×3 (06:26→20:59)
[2020-03-12] MEDS: Acetaminophen 325 MG TAB PO SCH ×4 (06:26→23:23)
[2020-03-12] MEDS: Ferrous Sulfate 325 MG TAB PO SCH ×2 (08:01→17:31)
[2020-03-12] MEDS: Senokot S 8.6-50 MG TAB PO SCH (08:02)
[2020-03-12] MEDS: Polyethylene Glycol 3350 17 GM Packet PO SCH (08:02)
[2020-03-12] MEDS: Divalproex Sodium DR 500 MG TAB PO SCH ×2 (08:03→20:56)
[2020-03-12] MEDS: Gabapentin 300 MG CAP PO SCH ×3 (08:03→20:56)
[2020-03-12] MEDS: Ascorbic Acid 500 mg Chewable Tablet PO SCH ×2 (08:03→20:56)
[2020-03-12] MEDS: Enoxaparin Sodium 30 MG/0.3 ML SYRINGE SC SCH ×2 (08:03→20:56)
[2020-03-12] MEDS ORDERED: Senokot S 8.6-50 MG TAB PO PRN (09:15)
[2020-03-12 13:40] LABS: Actual Bicarbonate (HCO3v) 22 mEq/L (22-28); Analyzer IN Cardio OR; Base Excess -7.2 mEq/L (-2.0 to +3.0); Calcium, Ionized 1.09 mmol/L (1.16-1.32); Chloride (ABG LAB) 105 mmol/L (98-106); Hemoglobin (Hb) 14.1 g/dL (13.2-17.3); Potassium - ABG Lab 5.61 mmol/L (3.70-5.30); Sodium 136.8 mmol/L (133-146)
[2020-03-12 16:35] LABS: pH (venous) 7.18 (7.32-7.43)
[2020-03-12] MEDS ORDERED: Hydrocortisone Sod Succ/PF 100 mg/2 ml Vial IVP SCH (23:45)
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
[2020-03-13] MEDS: Acetaminophen 325 MG TAB PO SCH ×4 (06:32→23:03)
[2020-03-13] MEDS: Ibuprofen 600 MG TAB PO SCH ×3 (06:32→21:02)
[2020-03-13] MEDS: Ferrous Sulfate 325 MG TAB PO SCH ×2 (08:04→18:02)
[2020-03-13] MEDS: Gabapentin 300 MG CAP PO SCH ×3 (08:04→21:02)
[2020-03-13] MEDS: Ascorbic Acid 500 mg Chewable Tablet PO SCH ×2 (08:04→18:02)
[2020-03-13] MEDS: Divalproex Sodium DR 500 MG TAB PO SCH ×2 (08:04→21:02)
[2020-03-13] MEDS: Enoxaparin Sodium 30 MG/0.3 ML SYRINGE SC SCH ×2 (08:05→21:02)
[2020-03-13] MEDS: Polyethylene Glycol 3350 17 GM Packet PO SCH (08:09)
[2020-03-13 09:08] LABS: Band 3 % (5-11); Eosinophils 1 % (0-10); Hemoglobin 8.6 g/dL (14.0-18.0); Hypochromia SLIGHT = 6-15 cells (100X) (0-5/hpf); Lymphocytes 12 % (21-51); MDiff Complete? YES; Mean Corpuscular HGB CONC 30.9 g/dL (32.0-36.0); Mean Corpuscular Hemoglobin 29.7 pg (27.0-31.0); Mean Corpuscular Volume 96.1 fL (78.0-98.0); Mean Platelet Volume 6.4 fL (7.4-10.4); Metamyelocyte 2 % (0-0); Monocytes 17 % (0-10); Myelocyte 2 % (0-0); Neutrophil 61 % (42-75); Platelet Count 586 thou/uL (130-400); Platelet Morphology Comment Appears Increased; RBC Distribution Width 12.9 % (11.5-14.5); Reactive Lymphocytes 2 % (0-10); White Blood Cell (WBC) Count 15.4 thou/uL (4.8-10.8)
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
[2020-03-14] MEDS: Acetaminophen 325 MG TAB PO SCH ×4 (05:37→22:27)
[2020-03-14] MEDS: Ibuprofen 600 MG TAB PO SCH ×3 (05:38→22:27)
[2020-03-14] MEDS: Enoxaparin Sodium 30 MG/0.3 ML SYRINGE SC SCH ×2 (08:00→20:37)
[2020-03-14] MEDS: Ascorbic Acid 500 mg Chewable Tablet PO SCH ×2 (08:00→17:45)
[2020-03-14] MEDS: Divalproex Sodium DR 500 MG TAB PO SCH ×2 (08:00→20:37)
[2020-03-14] MEDS: Gabapentin 300 MG CAP PO SCH ×3 (08:00→20:37)
[2020-03-14] MEDS: Ferrous Sulfate 325 MG TAB PO SCH ×2 (08:00→17:45)
[2020-03-14] MEDS: Polyethylene Glycol 3350 17 GM Packet PO SCH (08:03)
--- NOTE | 2020-03-14 09:17 | ULT ---
BILATERAL LOWER EXTREMITY VENOUS DOPPLER ULTRASOUND: HISTORY: Postop status and mobility, tachycardia. TECHNIQUE: Ferreira scale ultrasound with color flow and spectral Doppler imaging of the deep venous systems of the lower extremities was performed bilaterally. FINDINGS: The patient has a cast on the right lower leg starting below the knee. The right posterior tibial ve ins are thus not scanned. There is good flow, compression, and augmentation noted on the common femoral, femoral, deep femoral, popliteal, and visualized portions of the greater saphenous veins on either side and the left practice support specialist ior tibial vein. IMPRESSION: No evidence of deep vein thrombosis in either lower extremity. POS: [place]
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
[2020-03-14] MEDS ORDERED: Haloperidol Lactate 5 MG/ML VIAL IM SCH (16:15)
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
[2020-03-15] MEDS: Acetaminophen 325 MG TAB PO SCH ×3 (05:18→18:17)
[2020-03-15] MEDS: Ibuprofen 600 MG TAB PO SCH ×2 (05:18→15:16)
[2020-03-15] MEDS: Polyethylene Glycol 3350 17 GM Packet PO SCH (08:33)
[2020-03-15] MEDS: Ascorbic Acid 500 mg Chewable Tablet PO SCH ×2 (08:33→15:16)
[2020-03-15] MEDS: Divalproex Sodium DR 500 MG TAB PO SCH (08:33)
[2020-03-15] MEDS: Gabapentin 300 MG CAP PO SCH ×2 (08:33→15:16)
[2020-03-15] MEDS: Ferrous Sulfate 325 MG TAB PO SCH ×2 (08:33→15:16)
[2020-03-15] MEDS: Enoxaparin Sodium 30 MG/0.3 ML SYRINGE SC SCH (08:33)
[2020-03-15 11:57] VITALS: TEMP 98.4
[2020-03-15 15:22] VITALS: BP 127/81
== END 2020-03-15 19:00 | disposition home or self-care (01) | DRG 480 ==
LOC: ERS 10:34 → SDC/OP 14:33 → SJJU 20:23
PROVIDERS: ADMIT Specialist; ATTEND Specialist
PROC: 0QS806Z Reposition Right Femoral Shaft with Intramedullary Internal Fixation Device, Open Approach (ICD-10-PCS; principal; 2020-02-26)
PROC: 0QSH06Z Reposition Left Tibia with Intramedullary Internal Fixation Device, Open Approach (ICD-10-PCS; 2020-02-26)
PROC: 2W3QX1Z Immobilization of Right Lower Leg using Splint (ICD-10-PCS; 2020-02-26)
PROC: 0HQJXZZ Repair Left Upper Leg Skin, External Approach (ICD-10-PCS; 2020-02-26)
PROC: 0SS Lower Joints, Reposition (ICD-10-PCS; 2020-02-26)
PROC: 0HQFXZZ Repair Right Hand Skin, External Approach (ICD-10-PCS; 2020-02-26)
PROC: 0PSHXZZ Reposition Right Radius, External Approach (ICD-10-PCS; 2020-02-26)
PROC: 0QSG04Z Reposition Right Tibia with Internal Fixation Device, Open Approach (ICD-10-PCS; 2020-03-05)
PROC: 0SSK04Z Reposition Right Tarsometatarsal Joint with Internal Fixation Device, Open Approach (ICD-10-PCS; 2020-03-05)
DX: S82.55XA Nondisplaced fracture of medial malleolus of left tibia, initial encounter for closed fracture (principal); S72.351A Displaced comminuted fracture of shaft of right femur, initial encounter for closed fracture; S52.511A Displaced fracture of right radial styloid process, initial encounter for closed fracture; S12.500A Unspecified displaced fracture of sixth cervical vertebra, initial encounter for closed fracture; E87.2 Acidosis; K56.7 Ileus, unspecified; J98.11 Atelectasis; E27.40 Unspecified adrenocortical insufficiency; S82.851A Displaced trimalleolar fracture of right lower leg, initial encounter for closed fracture; S92.812A Other fracture of left foot, initial encounter for closed fracture; R40.2412 Glasgow coma scale score 13-15, at arrival to emergency department; V49.40XA Driver injured in collision with unspecified motor vehicles in traffic accident, initial encounter; S93.324A Dislocation of tarsometatarsal joint of right foot, initial encounter; S71.112A Laceration without foreign body, left thigh, initial encounter; S61.411A Laceration without foreign body of right hand, initial encounter; E86.0 Dehydration; G40.909 Epilepsy, unspecified, not intractable, without status epilepticus; F17.210 Nicotine dependence, cigarettes, uncomplicated; K59.00 Constipation, unspecified; Y92.411 Interstate highway as the place of occurrence of the external cause; Z79.899 Other long term (current) drug therapy
CPT/HCPCS: 12002; 29515; 36415; 36416; 51702; 70450; 70551; 71045; 71260; 72125; 72170; 74018; 74019; 74177; 76000; 80048; 80053; 80164; 80306; 80307; 81001; 81003; 81015; 82140; 82150; 82533; 82805; 83605; 83690; 83735; 84100; 84146; 84484; 85007; 85025; 85027; 86850; 86900; 86901; 87635; 90471; 90715; 93005; 93010; 93970; 94640; 95712; 95816; 95819; 95957; 96374; 96375; 96376; C1713; C1769; G0390; J0690; J1100; J1170; J1650; J1720; J1885; J2001; J2270; J2405; J2704; J2710; J3010; J3475; J3490; J7050; J7620; Q9967; S0020; S0028; U0003

== ENCOUNTER 2021-11-14 13:02 | Outpatient (CLI) | payer OTHER | END 2021-11-14 13:03 | disposition home or self-care (01) | LOC: BICCT 13:02 | PROVIDERS: ATTEND Physician Assistant Surgical | DX: S72.341D Displaced spiral fracture of shaft of right femur, subsequent encounter for closed fracture with routine healing (principal) ==